=== PATIENT | female | born 1995 | race Caucasian/White ===

== ENCOUNTER 2021-12-16 15:44 | Emergency (ER) | payer SELFPAY ==
[~2021-12-16] VITALS: Ht 170.2 cm; Wt 90.0 kg
[2021-12-16] MEDS ORDERED: HYDROCODONE/ACETAMINOPHEN 5/325MG TABLET PO ONE (16:30)
[2021-12-16 18:30] VITALS: BP 141/85
== END 2021-12-16 21:05 | disposition home or self-care (01) ==
LOC: ER 15:44
DX: S09.8XXA Other specified injuries of head, initial encounter (principal); M25.551 Pain in right hip; W22.8XXA Striking against or struck by other objects, initial encounter; Y93.89 Activity, other specified; Y92.89 Other specified places as the place of occurrence of the external cause; Y99.8 Other external cause status
CPT/HCPCS: 73502; 81025; 99284